=== PATIENT | male | born 1945 | race Caucasian/White ===

== ENCOUNTER → 2020-07-27 13:18 | Outpatient (BNVA) | payer OTHER, SELFPAY | PROVIDERS: Referring Provider Emergency Medicine Emergency Medical Services; Visit Provider Specialist | DX: M25.552 Pain in left hip (principal) | CPT/HCPCS: 73502 ==

== ENCOUNTER 2021-01-12 10:26 | Outpatient (RCR) | payer OTHER, SELFPAY | END 2021-02-03 23:59 | disposition home or self-care (01) | LOC: SPT 10:26 | PROVIDERS: PCP Emergency Medicine Emergency Medical Services; Referring Provider Emergency Medicine Emergency Medical Services; Visit Provider Emergency Medicine Emergency Medical Services | DX: M16.9 Osteoarthritis of hip, unspecified (principal) | CPT/HCPCS: 97110; 97161 ==

== ENCOUNTER 2021-02-04 06:00 | Outpatient (RCR) | payer OTHER, SELFPAY | END 2021-03-06 23:59 | disposition home or self-care (01) | LOC: SPT 06:00 | PROVIDERS: PCP Emergency Medicine Emergency Medical Services; Referring Provider Emergency Medicine Emergency Medical Services; Visit Provider Emergency Medicine Emergency Medical Services | DX: M16.12 Unilateral primary osteoarthritis, left hip (principal) | CPT/HCPCS: 97110 ==

== ENCOUNTER 2021-03-07 06:00 | Outpatient (RCR) | payer OTHER, SELFPAY | END 2021-04-05 23:59 | disposition home or self-care (01) | LOC: SPT 06:00 | PROVIDERS: PCP Emergency Medicine Emergency Medical Services; Referring Provider Emergency Medicine Emergency Medical Services; Visit Provider Emergency Medicine Emergency Medical Services | DX: M16.12 Unilateral primary osteoarthritis, left hip (principal) | CPT/HCPCS: 97110 ==

== ENCOUNTER → 2022-06-13 10:41 | Outpatient (BNVA) | payer OTHER, SELFPAY | PROVIDERS: PCP Emergency Medicine Emergency Medical Services; Visit Provider Surgery | DX: Z12.11 Encounter for screening for malignant neoplasm of colon (principal) | CPT/HCPCS: 99203 ==